=== PATIENT | female | born 1965 | race Caucasian/White ===

== ENCOUNTER → 2023-08-14 | Emergency (ER) | payer OTHER ==
[~2023-08-14] MED LIST: FOLIC ACID 5 MG/ML VIAL ONE; LORazepam 2 MG/ML VIAL ONE; MULTIVITAMINS 10 ML VIAL (INJ) IV ONE; NA CHLORIDE 0.9% 1,000 ML ONE; ONDANSETRON 4 MG/2 ML VIAL ONE; THIAMINE 200 MG/2 ML INJ ONE; chlordiazePOXIDE HCl 25 MG CAP ONE
--- OUTSIDE RECORDS SUMMARY | 2023-08-14 15:19 | XMS REPORT | Continuity of Care Document ---
Author Name Unknown Address [address] [facility] [address] [id number] [facility] thconnect Address [address] [facility]. 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 Name Role Phone VARGAS LACY Attending Clinician Unavailable IRMA FREEMAN Attending Clinician Unavailab JULIANO Malhotra Attending Clinician Unavailable ANDRIA FAUST Attending Clinician Unavaila MAME Jorgensen Attending Clinician Unavailab le [email or web address] Attending Clinician Unavaila NATALIA Gutierrez Attending Clinician Unavailable [id number] Attending Clinician Unavailable LEÓN PEREIRA Attending Clinician UnaMEGAN Mendoza Attending Clinician Unavailabl CRISTY Mai Attending Clinician Unavailable MD TYLER Attending Clinician Unavailab le [id number] Attending Clinician Unavailable GINA FELIPE Attending Clinician Unavailable [id number] Attending Clinician Unavailable Vargas Lacy MD Attending Clinician [phone] BRENDA BLACK Attending Clinician Unavailable Beba Wallis MD Attending Clinician +- [phone] BEBA WALLIS Attending Clinician Marie Bond MD Attending Clinician [phone] MARIE MARTIN Attending Clinician Unavailenedelia e Doctor Unassigned, [facility] Attending Clinician U navailable Only, Adc Test Attending Clinician Unavailable Jyoti Jiemnez Attending Clinician [phone], [facility] Attending Clinician Unavailable CYNTHIA POLLOCK Attending Clinician UnavailVARGAS Ochoa Admitting Clinician Unavailable [email or web address] Admitting Clinician UnavailVargas Rodriguez MD Admitting Clinician Payers Payer Name Policy Type Policy Number Effective Date Expirati on Date Source CIG[employer] II [id number] 2019 00:00:00 AETNA 2 [id number] 2022 00:00:00 AETNA CHOICE POS II [id number] 2020 00:00:00 Problems Condition Name Condition Details Condition Category Status Onset Date Resolution Date Last Treatment Date Treating Clinician Comments Source Vapes nicotine containing substance Vapes nicotine containing substance Disease Active 03-13 00:00: 00 Dorothy Barroso - Externa l Arthritis Arthritis Disease Active 03-13 00:00: 00 Dorothy Barroso - Externa l Family history of colon cancer Family history of colon cancer Disease Active 01-18 00:00: 00 Overview: Formattin g of this note might be different from the original. Added automatic ally from request for surgery [id number] [facility] Family history of esophageal cancer Family history of esophageal cancer Disease Active 01-18 00:00: 00 Overview: Formattin g of this note might be different from the original. Added automatic ally from request for surgery [id number] [facility] No known active problems No known active problems Disease [facility] Allergies, Adverse Reactions, Alerts Allergy Name Allergy Type Status Severity Reaction(s) Onset Date Inactive Date Treating Clinician Comments Source No Known Medicati on Allergie s Drug Active [facility] No Known Medicati on Allergie s Drug Active [facility] No Known Medicati on Allergie s Drug Active [facility] No Known Medicati on Allergie s Drug Active [facility] No Known Medicati on Allergie s Drug Active [facility] No Known Medicati on Allergie s Drug Active [facility] No Known Medicati on Allergie s Drug Active [facility] No Known Medicati on Allergie s Drug Active [facility] No Known Medicati on Allergie s Drug Active [facility] No Known Medicati on Allergie s Drug Active [facility] No Known Medicati on Allergie s Drug Active [facility] NO KNOWN ALLERGIE S Drug Class Active [facility] Social History Social Habit Start Date Stop Date Quantity Comments Source Exposure to SARS-CoV-2 (event) Not sure [facility] Gender identity Lor acharya Chio - External Sexual orientation Miki flores Chio - External Alcohol intake 2023-03-30 00:00:00 2023-03-30 00:00:00 .57 /d Dorothy Barroso - External History of Social function 2023-03-15 00:00:00 2023-03-15 00:00:00 Dorothy Barroso - External Tobacco use and exposure 2022-03-13 00:00:00 2022-03-13 00:00:00 Smokeless tobacco non-user Dorothy Barroso - External Tobacco Comment 2019-10-11 00:00:00 2019-10-11 00:00:00 Patient myranda [facility] Sex Assigned At 1965 00:00:00 1965 00:00:00 Dorothy Barroso - External Smoking Status Start Date Stop Date Source Never smoked tobacco Dorothy Barroso - External Former smoker 2020-02-07 00:00:00 2020-02-07 00:00:00 [facility] Medications Ordered Medication Name Filled Medication Name Start Date Stop Date Current Medication? Ordering Clinician Indication Dosage Frequency Signature (SIG) Comments Components Source Ipratropium [place] 0.03 % nasal Solution 2022-06 00:00: 00 Yes [id number] 2{spray } Use 2 sprays in each nostril every 12 hours. Dorothy Moy Externa l Ketorolac Tromethamin e (TORADOL) 60 mg/2 mL 2022-06 16:45: 00 03-30 16:51 :00 No [id number] 60mg Dorothy Barroso - Externa l Ketorolac Tromethamin e (TORADOL) 60 mg/2 mL 2022-06 16:45: 00 03-30 16:51 :00 No [id number] 60mg 60 mg, Physician Administer ed, ONCE, On Wed03/30/23 at 1145, For 1 dose Dorothy Chio mo Duloxetine HCl [address] Particles 2022-06 0-03 00:00: 00 Yes [id number] 20mg Take 1 capsule (20 mg total) by mouth daily. Dorothy mo Diclofenac Sodium 75 MG oral Tablet Delayed Response 03-26 00:00: 00 Yes [id number] 75mg Take 1 tablet (75 mg total) by mouth 2 times daily. Dorothy mo Diclofenac Sodium 75 MG oral Tablet Delayed Response 03-26 00:00: 00 Yes [id number] 75mg Take 1 tablet (75 mg total) by mouth 2 times daily. Dorothy mo Sertraline HCl 25 MG oral Tablet 03-09 00:00: 00 Yes [id number] 25mg Take 1 tablet (25 mg total) by mouth daily. Dorothy mo Sertraline HCl 25 MG oral Tablet 03-09 00:00: 00 Yes [id number] 25mg Take 1 tablet (25 mg total) by mouth daily. Dorothy mo Duloxetine HCl [address] Particles 02-18 00:00: 00 Yes [id number] 20mg Take 1 capsule (20 mg total) by mouth daily. Dorothy mo Sertraline HCl 25 MG oral Tablet 02-18 00:00: 00 Yes [id number] 25mg Take 1 tablet (25 mg total) by mouth daily. Dorothy mo methylPREDN ISolone 4 MG oral Tablet Therapy Pack 02-18 00:00: 00 Yes [id number] 1{esteban} Take 1 esteban by mouth See Admin Instructio ns Use as directed. Dorothy mo Duloxetine HCl [address] Particles 02-18 00:00: 00 Yes [id number] 20mg Take 1 capsule (20 mg total) by mouth daily. Dorothy mo methylPREDN ISolone 4 MG oral Tablet Therapy Pack 02-18 00:00: 00 Yes [id number] 1{esteban} Take 1 pa k by mouth See Admin Instructio ns Use as directed. Dorothy mo methylPREDN ISolone 4 MG oral Tablet Therapy Pack 02-18 00:00: 00 04-28 00:00 :00 No [id number] 1{esteban} Take 1 esteban by mouth See Admin Instructio ns Use as directed. Dorothy Moy Externa chely Sertraline HCl 25 MG oral Tablet 02-11 00:00: 00 02-18 00:00 :00 No [id number] 50mg TAKE 2 TABLETS(50 MG) BY MOUTH DAILY Dorothy Barroso - Externa chely Sertraline HCl 25 MG oral Tablet 01-04 00:00: 00 Yes [id number] 50mg Take 2 tablets (50 mg total) by mouth daily Dorothy Moy Externa chely Trazodone HCl 50 MG oral Tablet 01-04 00:00: 00 Yes [id number] 50mg Take 1 tablet (50 mg total) by mouth nightly Dorothy Barroso - Externa chely Trazodone HCl 50 MG oral Tablet 01-04 00:00: 00 Yes [id number] 50mg Take 1 tablet (50 mg total) by mouth nightly Dorothy Barroso - Externa chely Trazodone HCl 50 MG oral Tablet 01-04 00:00: 00 Yes [id number] 50mg Take 1 tablet (50 mg total) by mouth nightly Dorothy Moy Externa chely Trazodone HCl 50 MG oral Tablet 01-04 00:00: 00 Yes [id number] 50mg Take 1 tablet (50 mg total) by mouth nightly Dorothy Barroso - Externa chely Sertraline HCl 25 MG oral Tablet 710 00:00: 00 Yes [id number] 50mg Take 2 tablets (50 mg total) by mouth daily Dorothy Barroso - Externa chely Trazodone HCl 50 MG oral Tablet 10 00:00: 00 Yes [id number] 50mg Take 1 tablet (50 mg total) by mouth nightly Dorothy Barroso - Externa chely Sertraline HCl 25 MG oral Tablet 01-01 00:00: 01-04 00:00 :00 No [id number] TAKE 1 TABLET(25 MG) BY MOUTH DAILY Dorothy mo Trazodone HCl 50 MG oral Tablet 12-07 00:00: 00 Yes [id number] 50mg Take 1 tablet (50 mg total) by mouth nightly Dorothy mo Sertraline HCl 25 MG oral Tablet 12-07 00:00: 00 Yes [id number] 25mg Take 1 tablet (25 mg total) by mouth daily Dorothy mo buPROPion HCl 75 MG oral Tablet 12-07 00:00: 00 Yes [id number] 75mg Take 1 tablet (75 mg total) by mouth daily Dorothy mo Trazodone HCl 50 MG oral Tablet 12-07 00:00: 00 01-04 00:00 :00 No [id number] 50mg Take 1 tablet (50 mg total) by mouth nightly Dorothy mo buPROPion HCl 75 MG oral Tablet 12-07 00:00: 00 01-04 00:00 :00 No [id number] 75mg Take 1 tablet (75 mg total) by mouth daily Dorothy mo methylPREDN ISolone 4 MG oral Tablet Therapy Pack - 00:00: 00 12-07 00:00 :00 No [id number] 1{esteban} Take 1 esteban by mouth See Admin Instructio ns Use as directed Dorothy mo Lidocaine 4 % apply externally Ointment 03-27 00:00: 00 Yes [id number] 3D Apply 1 applicatio n topically 3 times daily as needed Dorothy mo Lidocaine 4 % apply externally Ointment 03-27 00:00: 00 07-17 00:00 :00 No [id number] 3D Apply 1 applicatio n topically 3 times daily as needed Dorothy mo water for irrigation irrigation solution 8-11 13:18: 00 Yes PRN, Starting Wed02/06/20 at 0818, Until Discontinu ed, Routine, Intra-op [facility] simethicone (GAS RELIEF (SIMETHICON E)) 40 mg/0.6 mL drops 02-05 13:17: 00 Yes PRN, Starting Wed02/06/20 at 0817, Until Discontinu ed, Routine, Intra-op [facility] pantoprazol e 40 mg EC tablet 02-05 00:00: 00 Yes [id number] 40mg Take 1 tablet by mouth daily. [facility] sucralfate (CARAFATE) 1 gram tablet 02-05 00:00: 00 Yes [id number] 1g Take 1 tablet by mouth before meals and at bedtime. [facility] pantoprazol e 40 mg EC tablet 02-05 00:00: 00 Yes [id number] 40mg Take 1 tablet by mouth daily. [facility] sucralfate (CARAFATE) 1 gram tablet 02-05 00:00: 00 Yes [id number] 1g Take 1 tablet by mouth before meals and at bedtime. [facility] pantoprazol e 40 mg EC tablet 02-05 00:00: 00 Yes [id number] 40mg Take 1 tablet by mouth daily. [facility] sucralfate (CARAFATE) 1 gram tablet 02-05 00:00: 00 Yes [id number] 1g Take 1 tablet by mouth before meals and at bedtime. [facility] pantoprazol e 40 mg EC tablet 02-05 00:00: 00 Yes [id number] 40mg Take 1 tablet by mouth daily. [facility] sucralfate (CARAFATE) 1 gram tablet 02-05 00:00: 00 Yes [id number] 1g Take 1 tablet by mouth before meals and at bedtime. [facility] pantoprazol e 40 mg EC tablet 02-05 00:00: 00 Yes [id number] 40mg Take 1 tablet by mouth daily. [facility] sucralfate (CARAFATE) 1 gram tablet 02-05 00:00: 00 Yes [id number] 1g Take 1 tablet by mouth before meals and at bedtime. [facility] pantoprazol e 40 mg EC tablet 02-05 00:00: 00 Yes [id number] 40mg Take 1 tablet by mouth daily. [facility] sucralfate (CARAFATE) 1 gram tablet 02-05 00:00: 00 Yes [id number] 1g Take 1 tablet by mouth before meals and at bedtime. [facility] pantoprazol e 40 mg EC tablet 02-05 00:00: 00 Yes [id number] 40mg Take 1 tablet by mouth daily. [facility] sucralfate (CARAFATE) 1 gram tablet 02-05 00:00: 00 Yes [id number] 1g Take 1 tablet by mouth before meals and at bedtime. [facility] pantoprazol e 40 mg EC tablet 02-05 00:00: 00 05-27 00:00 :00 No [id number] 40mg Take 1 tablet by mouth daily. [facility] sucralfate (CARAFATE) 1 gram tablet 02-05 00:00: 00 05-27 00:00 :00 No [id number] 1g Take 1 tablet by mouth before meals and at bedtime. [facility] pantoprazol e 40 mg EC tablet 02-05 00:00: 00 05-27 00:00 :00 No [id number] 40mg Take 1 tablet by mouth daily. [facility] sucralfate (CARAFATE) 1 gram tablet 02-05 00:00: 00 05-27 00:00 :00 No [id number] 1g Take 1 tablet by mouth before meals and at bedtime. [facility] peg-electro lyte soln 236-22.74-6 .74 -5.86 gram solution 0 724 00:00: 00 Yes [id number] 4000mL Take 4,000 mL by mouth SEE-INSTRU CTIONS. Take as directed [facility] peg-electro lyte soln 236-22.74-6 .74 -5.86 gram solution 2019-0 724 00:00: 00 Yes [id number] 4000mL Take 4,000 mL by mouth SEE-INSTRU CTIONS. Take as directed [facility] peg-electro lyte soln 236-22.74-6 .74 -5.86 gram solution 0 24 00:00: 00 Yes [id number] 4000mL Take 4,000 mL by mouth SEE-INSTRU CTIONS. Take as directed [facility] peg-electro lyte soln 236-22.74-6 .74 -5.86 gram solution 0 24 00:00: 00 02-05 00:00 :00 No [id number] 4000mL Take 4,000 mL by mouth SEE-INSTRU CTIONS. Take as directed [facility] methylPREDN ISolone (MEDROL, ESTEBAN,) 4 mg tablets 0 616 00:00: 00 Yes [id number] Take by mouth SEE-INSTRU CTIONS. follow package directions [facility] methylPREDN ISolone (MEDROL, ESTEBAN,) 4 mg tablets 0 616 00:00: 00 12-24 00:00 :00 No [id number] Take by mouth SEE-INSTRU CTIONS. follow package directions [facility] methylPREDN ISolone (MEDROL, ESTEBAN,) 4 mg tablets 0 6-16 00:00: 00 12-24 00:00 :00 No [id number] Take by mouth SEE-INSTRU CTIONS. follow package directions [facility] meloxicam 15 mg tablet 0 4-24 00:00: 00 Yes [id number] 15mg Take 1 tablet by mouth daily. [facility] meloxicam 15 mg tablet 2019-0 4-24 00:00: 00 Yes [id number] 15mg Take 1 tablet by mouth daily. [facility] meloxicam 15 mg tablet 2020-0 4-24 00:00: 00 Yes [id number] 15mg Take 1 tablet by mouth daily. [facility] 2020-0 4-24 00:00: 00 Yes [id number] 15mg Take 1 tablet by mouth daily. [facility] mg tablet 2020-0 4-24 00:00: 00 Yes [id number] 15mg Take 1 tablet by mouth daily. [facility] mg tablet 2020-0 4-24 00:00: 00 Yes [id number] 15mg Take 1 tablet by mouth daily. [facility] mg tablet 2020-0 4-24 00:00: 00 Yes [id number] 15mg Take 1 tablet by mouth daily. [facility] meloxicam 15 mg tablet 2020-0 424 00:00: 00 Yes [id number] 15mg Take 1 tablet by mouth daily. [facility] meloxicam 15 mg tablet 2020-0 4-24 00:00: 00 Yes [id number] 15mg Take 1 tablet by mouth daily. [facility] meloxicam 15 mg tablet 2020-0 4-24 00:00: 00 Yes [id number] 15mg Take 1 tablet by mouth daily. [facility] meloxicam 15 mg tablet 2020-0 424 00:00: 00 Yes [id number] 15mg Take 1 tablet by mouth daily. [facility] meloxicam 15 mg tablet 2020-0 4-24 00:00: 00 Yes [id number] 15mg Take 1 tablet by mouth daily. [facility] meloxicam 15 mg tablet 2020-0 4-24 00:00: 00 Yes [id number] 15mg Take 1 tablet by mouth daily. [facility] meloxicam 15 mg tablet 2020-0 4-24 00:00: 00 Yes [id number] 15mg Take 1 tablet by mouth daily. [facility] mg tablet 2020-0 4-24 00:00: 00 Yes [id number] 15mg Take 1 tablet by mouth daily. [facility] meloxicam 15 mg tablet 2020-0 4-24 00:00: 00 Yes [id number] 15mg Take 1 tablet by mouth daily. [facility] meloxicam 15 mg tablet 2020-0 4-24 00:00: 00 Yes [id number] 15mg Take 1 tablet by mouth daily. [facility] meloxicam 15 mg tablet 2020-0 4-24 00:00: 00 Yes [id number] 15mg Take 1 tablet by mouth daily. [facility] meloxicam 15 mg tablet 2020-0 4-24 00:00: 00 Yes [id number] 15mg Take 1 tablet by mouth daily. [facility] meloxicam 15 mg tablet 2020-0 4-24 00:00: 00 Yes [id number] 15mg Take 1 tablet by mouth daily. [facility] meloxicam 15 mg tablet 2020-0 4-24 00:00: 00 Yes [id number] 15mg Take 1 tablet by mouth daily. [facility] meloxicam 15 mg tablet 2020-0 4-24 00:00: 00 30 00:00 :00 No [id number] 15mg Take 1 tablet by mouth daily. [facility] meloxicam 15 mg tablet 2020-0 4-24 00:00: 00 30 00:00 :00 No [id number] 15mg Take 1 tablet by mouth daily. [facility] methylPREDN ISolone (MEDROL, ESTEBAN,) 4 mg tablets 2020-0 4-15 00:00: 00 Yes [id number] Take by mouth SEE-INSTRU CTIONS. follow package directions [facility] methylPREDN ISolone (MEDROL, ESTEBAN,) 4 mg tablets 2020-0 4-15 00:00: 00 Yes [id number] Take by mouth SEE-INSTRU CTIONS. follow package directions [facility] methylPREDN ISolone (MEDROL, ESTEBAN,) 4 mg tablets 2020-0 4-15 00:00: 00 16 00:00 :00 No [id number] Take by mouth SEE-INSTRU CTIONS. follow package directions [facility] No known medications No Un j carlos [facility] Immunizations Ordered Immunization Name Filled Immunization Name Date Status Comments Source Influenza, Injectable, Mdck, Preservative Free, Quadrivalt 2022-06-09 00:00:00 Completed Dorothy Wolfold - External influenza, Injectable, Mdck, Preservative Free, Quadrivalt 2022-06-09 00:00:00 Completed Dorothy Wolfold - External Influenza, Injectable, Mdck, Preservative Free, Quadrivalt 2022-06-09 00:00:00 Completed Dorothy Wolfold - External Influenza, Injectable, Mdck, Preservative Free, Quadrivalt 2022-06-09 00:00:00 Completed Dorothy Wolfold - External Tdap- (Boostrix, Adacel) 2022-03-13 00:00:00 Completed Dorothy Peckybold - External Tdap- (Boostrix, Adacel) 2022-03-13 00:00:00 Completed Dorothy Peckybold - External Tdap- (Boostrix, Adacel) 2022-03-13 00:00:00 Completed Dorothy Wolfold - External Tdap- (Boostrix, Adacel) 2022-03-13 00:00:00 Completed Dorothy Wolfold - External Tdap- (Boostrix, Adacel) 2022-03-13 00:00:00 Completed Dorothy Peckybold - External Tdap- (Boostrix, Adacel) 2022-03-13 00:00:00 Completed Dorothy Barroso - External SARS-COV-2 COVID-19 MODERNA VACCINE 2020-10-02 00:00:00 Completed [facility] SARS-COV-2 COVID-19 MODERNA VACCINE 2020-09-04 00:00:00 Completed [facility] Tdap- (Boostrix, Adacel) Unknown Completed Dorothy Wolfold - External Influenza, Injectable, Mdck, Preservative Free, Quadrivalent Unknown Completed Dorothy Wolfold - External Tdap- (Boostrix, Adacel) Unknown Completed Dorothy Wolfold - External Influenza, Injectable, Mdck, Preservative Free, Quadrivalent Unknown Completed Dorothy Barroso - External Vital Signs Vital Name Observation Time Observation Value Comments S ource Height/Length Measured 2020-02-20 14:20:07 Body weight 2023-03-30 16:17:00 64.955 kg Lor Wolfold - External BMI 2023-03-30 16:17:00 23.11 kg/m2 Lor ey Seybold - External Systolic blood pressure 2023-02-18 14:21:00 134 mm[Hg] Dorothy Seybo ld - External Diastolic blood pressure 2023-02-18 14:21:00 90 mm[Hg] Dorothy Seybo ld - External Heart rate 2023-02-18 14:21:00 74 /min Spencerse y Seybold - External Body temperature 2023-02-18 14:21:00 36.06 Saundra Dorothy Seybold - External Respiratory rate 2023-02-18 14:21:00 14 /min Dorothy Seybold - External Body height 2023-02-18 14:21:00 167.6 cm Lor ey Seybold - External Body weight 2023-02-18 14:21:00 64.411 kg Lor ey Seybold - External BMI 2023-02-18 14:21:00 22.92 kg/m2 Lor ey Seybold - External Body temperature 2023-01-04 20:10:00 36.67 Saundra Dorothy Seybold - External Respiratory rate 2023-01-04 20:10:00 14 /min Dorothy Peckybold - External Body height 2023-01-04 20:10:00 167.6 cm Lor acharya Seybold - External Body weight 2023-01-04 20:10:00 66.225 kg Lor ey Seybold - External BMI 2023-01-04 20:10:00 23.57 kg/m2 Lor acharya Seybold - External Oxygen saturation in Arterial blood by Pulse oximetry 2023-01-04 20:10:00 99 /min Dorothy Seybo ld - External Systolic blood pressure 2023-01-04 20:10:00 112 mm[Hg] Dorothy Peckybo ld - External Diastolic blood pressure 2023-01-04 20:10:00 67 mm[Hg] Dorothy Seybo ld - External Heart rate 2023-01-04 20:10:00 88 /min Spencerse y Seybold - External Systolic blood pressure 2022-12-07 19:11:00 122 mm[Hg] Dorothy Seybo ld - External Diastolic blood pressure 2022-12-07 19:11:00 74 mm[Hg] Dorothy Seybo ld - External Heart rate 2022-12-07 19:11:00 68 /min Kelse y Seybold - External Body temperature 2022-12-07 19:11:00 36 Saundra Dorothy Seybold - External Respiratory rate 2022-12-07 19:11:00 14 /min Dorothy Seybold - External Body height 2022-12-07 19:11:00 167.6 cm Lor ey Seybold - External Body weight 2022-12-07 19:11:00 66.225 kg Lor ey Seybold - External BMI 2022-12-07 19:11:00 23.57 kg/m2 Lor ey Seybold - External Systolic blood pressure 2022-07-17 20:40:00 132 mm[Hg] Dorothy Seybo ld - External Diastolic blood pressure 2022-07-17 20:40:00 82 mm[Hg] Dorothy Seybo ld - External Heart rate 2022-07-17 20:40:00 64 /min Kelse y Seybold - External Respiratory rate 2022-07-17 20:40:00 18 /min Dorothy Seybold - External Systolic blood pressure 2022-04-21 16:14:00 124 mm[Hg] Dorothy Seybo ld - External Diastolic blood pressure 2022-04-21 16:14:00 86 mm[Hg] Dorothy Seybo ld - External Heart rate 2022-04-21 16:14:00 80 /min Kelse y Seybold - External Respiratory rate 2022-04-21 16:14:00 18 /min Dorothy Seybold - External Body height 2022-04-21 16:14:00 167.6 cm Lor ey Seybold - External Body weight 2022-04-21 16:14:00 74.934 kg Lor ey Seybold - External BMI 2022-04-21 16:14:00 26.66 kg/m2 Lor ey Seybold - External Systolic blood pressure 2020-05-27 19:52:00 143 mm[Hg] [facility] Diastolic blood pressure 2020-05-27 19:52:00 91 mm[Hg] [facility] Heart rate 2020-05-27 19:52:00 66 /min [facility] Body height 2020-05-27 19:52:[address] [facility] Body weight 2020-05-27 19:52:[address] [facility] BMI 2020-05-27 19:52:00 24.86 kg/m2 [facility] Systolic blood pressure 2020-02-15 19:13:00 136 mm[Hg] [facility] Diastolic blood pressure 2020-02-15 19:13:00 87 mm[Hg] [facility] Heart rate 2020-02-15 19:13:00 68 [facility] 2020-02-15 19:13:[address] [facility] Body weight 2020-02-15 19:13:[address] [facility] BMI 2020-02-15 19:13:00 25.02 kg/m2 [facility] Height/Length Measured 2021-07-15 12:10:36 167.64 cm Weight Dosing 2021-07-15 12:10:36 68.12 kg Height/Length Measured 2021-07-15 12:10:32 167.64 cm Weight Dosing 2021-07-15 12:10:32 68.12 kg Height/Length Measured 2021-07-15 12:10:31 167.64 cm Weight Dosing 2021-07-15 12:10:31 68.12 kg Height/Length Measured 2021-07-15 12:09:18 167.64 cm Weight Dosing 2021-07-15 12:09:18 68.12 kg Height/Length Measured 2021-07-15 12:09:15 167.64 cm Weight Dosing 2021-07-15 12:09:15 68.12 kg Height/Length Measured 2021-07-15 12:08:59 167.64 cm Weight Dosing 2021-07-15 12:08:59 68.12 kg Height/Length Measured 2021-07-15 12:08:41 167.64 cm Weight Dosing 2021-07-15 12:08:41 70.30 kg Height/Length Measured 2021-07-15 12:08:23 167.64 cm Weight Dosing 2021-07-15 12:08:23 70.30 kg Height/Length Measured 2021-07-15 12:08:22 167.64 cm Weight Dosing 2021-07-15 12:08:22 70.30 kg Height/Length Measured 2021-07-15 12:07:47 167.64 cm Weight Dosing 2021-07-15 12:07:47 70.30 kg Height/Length Measured 2021-07-15 12:07:45 167.64 cm Weight Dosing 2021-07-15 12:07:45 70.30 kg Height/Length Measured 2020-02-27 10:41:27 Weight Dosing 2020-02-27 10:41:27 Height/Length Measured 2020-02-27 10:13:37 Systolic blood pressure 2020-02-20 20:58:00 130 mm[Hg] [facility] Diastolic blood pressure 2020-02-20 20:58:00 87 mm[Hg] [facility] Heart rate 2020-02-20 20:58:00 69 /min Unive [facility] Body temperature 2020-02-20 20:58:00 36.61 Saundra [facility] Respiratory rate 2020-02-20 20:58:00 18 /min [facility] Body weight 2020-02-20 20:58:[address] [facility] BMI 2020-02-20 20:58:00 25.11 kg/m2 [facility] [facility] Systolic blood pressure 2020-02-06 13:50:00 110 mm[Hg] [facility] Diastolic blood pressure 2020-02-06 13:50:00 60 mm[Hg] [facility] Heart rate 2020-02-06 13:50:00 59 /min [facility] Oxygen saturation in Arterial blood by Pulse oximetry 2020-02-06 13:50:00 99 /min [facility] Respiratory rate 2020-02-06 13:30:00 16 /min [facility] Body temperature 2020-02-06 13:26:00 35.83 Saundra [facility] Body height 2020-02-05 14:45:[address] [facility] Body weight 2020-02-05 14:45:[address] [facility] BMI 2020-02-05 14:45:00 24.21 kg/m2 [facility] Systolic blood pressure 2020-01-18 18:03:00 139 mm[Hg] [facility] Diastolic blood pressure 2020-01-18 18:03:00 91 mm[Hg] [facility] Heart rate 2020-01-18 18:03:00 63 /min [facility] Body temperature 2020-01-18 18:03:00 36.39 Saundra [facility] Respiratory rate 2020-01-18 18:03:00 18 /min [facility] Body weight 2020-01-18 18:03:00 69.627 kg [facility] BMI 2020-01-18 18:03:00 24.78 kg/m2 [facility] Systolic blood pressure 2019-12-29 13:08:00 139 mm[Hg] [facility] Diastolic blood pressure 2019-12-29 13:08:00 93 mm[Hg] [facility] Heart rate 2019-12-29 13:06:00 78 /[facility] 2019-12-29 13:06:[address] [facility] BMI 2019-12-29 13:06:00 25.18 kg/m2 [facility] Heart rate 2019-12-25 14:10:00 58 /min [facility] Body height 2019-12-25 14:10:[address] [facility] Body weight 2019-12-25 14:10:[address] [facility] BMI 2019-12-25 14:10:00 25.18 kg/m2 [facility] Systolic blood pressure 2019-12-25 14:10:00 145 mm[Hg] [facility] Diastolic blood pressure 2019-12-25 14:10:00 84 mm[Hg] [facility] Procedures Procedure Date / Time Performed Performing Clinician Source EXTERNAL PROVIDER RECORDS 2020-02-15 05:01:00 Doctor Unassigned, [facility] COLONOSCOPY (ENDO) 2020-02-06 12:09:58 Beba Wallis [facility] EGD (ENDO) 2020-02-06 12:06:12 Beba Wallis [facility] ASSIGNMENT OF BENEFITS 2020-02-05 13:49:14 Docto r Unassigned, [facility] DISCLOSURE AND CONSENT, MEDICAL AND SURGICAL PROCEDURES 2020-01-18 05:01:00 Doctor Unassigned, [facility] XR KNEE <3 VW RIGHT 2019-12-29 13:28:08 Maury Martin [facility] Encounters Start Date/Time End Date/Time Encounter Type Admission Type Attending [facility] Care Department Encounter ID Source 2021-07-15 12:02:43 Inpatient 3 [facility] [id number] [facility] 2021-04-25 09:55:42 Outpatient R VARGAS LACY [facility] [id number] [facility] 2023-09-03 08:15:00 2023-09-03 08:15:00 Outpatient IRMA IBANEZ [id number] [facility] 2023-08-06 00:00:00 2023-08-06 00:00:00 Outpatient JULIANO LORD [id number] [facility] 2023-06-30 09:30:00 2023-06-30 09:30:00 Outpatient ANDRIA FAUST [id number] [facility] 2023-06-07 00:00:00 2023-06-07 00:00:00 Outpatient JULIANO LORD [id number] [facility] 2023-05-04 00:00:00 2023-05-04 00:00:00 Outpatient JULIANO LORD [id number] [facility] 2023-04-28 08:45:00 2023-04-28 08:45:00 Outpatient MMAE FONTANA [id number] [facility] 2023-04-28 00:00:00 2023-04-28 00:00:00 Outpatient JULIANO LORD [id number] [facility] 2023-04-24 00:00:00 2023-04-24 00:00:00 Outpatient GC_GCBZW_Ka diyala_S PRIV PRIV [id number] [facility] 2023-04-24 00:00:00 2023-04-24 00:00:00 Outpatient GC_GCBZW_Ka diyala_S PRIV PRIV [id number] [facility] 2023-03-30 11:00:00 2023-03-30 11:00:00 Outpatient NATALIA GAMEZ DOROTHY MARTINEZ [id number] [facility] 2023-03-30 11:00:00 2023-03-30 11:00:00 Outpatient ANDRIA FAUST DOROTHY MARTINEZ [id number] [facility] 2023-03-29 00:00:00 2023-03-29 00:00:00 Outpatient HUNDL, JULIANO MARTINEZ [id number] [facility] 2023-03-26 00:00:00 2023-03-26 00:00:00 Outpatient HUNDL, JULIANO MARTINEZ [id number] [facility] 2023-03-24 10:30:00 2023-03-24 10:30:00 Outpatient HUNDL, JULIANO MARTINEZ [id number] [facility] 2023-03-23 15:30:00 2023-03-23 15:30:00 Outpatient DOROTHY MARTINEZ [id number] [facility] 2023-03-22 09:30:00 2023-03-22 09:30:00 Outpatient HUNDL, JULIANO MARTINEZ [id number] [facility] 2023-03-09 00:00:00 2023-03-09 00:00:00 Outpatient HUNDL, JULIANO MARTINEZ [id number] [facility] 2023-03-04 00:00:00 2023-03-04 00:00:00 Outpatient LUCRECIAL, JULIANO MARTINEZ [id number] [facility] 2023-02-18 10:15:00 2023-02-18 10:15:00 Outpatient LAB90 DOROTHY MARTINEZ [id number] [facility] 2023-02-18 09:30:00 2023-02-18 09:30:00 Outpatient HUNDL, JULIANO MARTINEZ [id number] [facility] 2023-02-07 00:00:00 2023-02-07 00:00:00 Outpatient HUNDL, JULIANO DOROTHY MARTINEZ [id number] [facility] 2023-02-07 00:00:00 2023-02-07 00:00:00 Outpatient HUNDL, JULIANOMarianna MARTINEZ [id number] [facility] 2023-01-29 13:00:00 2023-01-29 13:00:00 Outpatient HUNDL, JULIANO DOROTHY MARTINEZ [id number] [facility] 2023-01-05 15:30:00 2023-01-05 15:30:00 Outpatient IRMA IBANEZ [id number] [facility] 2023-01-04 15:30:00 2023-01-04 15:30:00 Outpatient HUNDL, JULIANO MARTINEZ [id number] [facility] 2022-12-31 00:00:00 2022-12-31 00:00:00 Outpatient HUNDL, JULIANO DOROTHY MARTINEZ [id number] [facility] 2022-12-07 14:30:00 2022-12-07 14:30:00 Outpatient HUNDL, JULIANO DOROTHY MARTINEZ [id number] [facility] 2022-12-01 14:30:00 2022-12-01 14:30:00 Outpatient HUNDL, JULIANO MARTINEZ [id number] [facility] 2022-11-02 00:00:00 2022-11-02 00:00:00 Outpatient HUNDL, JULIANO MARTINEZ [id number] [facility] 2022-10-07 00:00:00 2022-10-07 00:00:00 Outpatient IRMA IBANEZ [id number] [facility] 2022-09-23 11:00:00 2022-09-23 11:00:00 Outpatient DOROTHY MARTINEZ [id number] [facility] Se[facility]ryan 2022-09-23 10:00:00 2022-09-23 10:00:00 Outpatient DOROTHY MARTINEZ [id number] [facility] 2022-09-23 09:30:00 2022-09-23 09:30:00 Outpatient DOROTHY MARTINEZ [id number] [facility] Chio 2022-09-23 08:30:00 2022-09-23 08:30:00 Outpatient DOROTHYMILI MARTINEZ [id number] [facility] 2022-09-23 00:00:00 2022-09-23 00:00:00 Outpatient LEÓN PEREIRA DOROTHY MARTINEZ [id number] [facility] 2022-09-22 00:00:00 2022-09-22 00:00:00 Outpatient CHITSATAWANNAADE IRMA Mayo DOROTHY MARTINEZ [id number] [facility] 2022-09-17 08:00:00 2022-09-17 08:00:00 Outpatient CHITSAZZADE H, IRMA DOROTHY MARTINEZ [id number] [facility] 2022-09-14 00:00:00 2022-09-14 00:00:00 Outpatient RISA JULIANO MARTINEZ [id number] [facility] 2022-08-18 10:40:00 2022-08-18 10:40:00 Outpatient DOROTHY MARTINEZ [id number] [facility] laura 2022-08-10 00:00:00 2022-08-10 00:00:00 Outpatient LEÓN PEREIRA DOROTHY MARTINEZ [id number] [facility] yblaura 2022-07-31 00:00:00 2022-07-31 00:00:00 Outpatient JULIANO LORD [id number] [facility] 2022-07-31 00:00:00 2022-07-31 00:00:00 Outpatient RISA JULIANO MARTINEZ [id number] [facility] 2022-07-29 14:20:00 2022-07-29 14:20:00 Outpatient DOROTHY MARTINEZ [id number] [facility] 2022-07-29 14:10:00 2022-07-29 14:10:00 Outpatient KELLI LEÓN DOROTHY MARTINEZ [id number] [facility] 2022-07-27 00:00:00 2022-07-27 00:00:00 Outpatient KELLI, LEÓN DOROTHY MARTINEZ [id number] [facility] 2022-07-20 00:00:00 2022-07-20 00:00:00 Outpatient JOHN HARMONELLE DOROTHY MARTINEZ [id number] [facility] 2022-07-17 14:20:00 2022-07-17 14:20:00 Outpatient CRISTY BEE [id number] [facility] 2022-06-24 09:10:00 2022-06-24 09:10:00 Outpatient LEÓN PEREIRA DOROTHY MARTINEZ [id number] [facility] 2022-06-18 00:00:00 2022-06-18 00:00:00 Outpatient MD DOROTHY FLORES [id number] [facility] 2022-05-29 11:20:00 2022-05-29 11:20:00 Outpatient CRISTY BEE [id number] [facility] 2022-05-29 00:00:00 2022-05-29 00:00:00 [facility] [id number] [facility]-11 13:55:00 2022-05-11 13:55:00 Outpatient LEÓN PEREIRA [id number] [facility] 2022-05-05 00:00:00 2022-05-05 00:00:00 Outpatient MD DOROTHY FLORES [id number] [facility] 2022-04-21 11:45:00 2022-04-21 11:45:00 Outpatient [id number] DOROTHY MARTINEZ [id number] [facility] 2022-04-21 11:30:00 2022-04-21 11:30:00 Outpatient GINA FELIPE [id number] [facility] 2022-03-26 00:00:00 2022-03-26 00:00:00 Outpatient JULIANO LORD [id number] [facility] 2022-03-16 08:30:00 2022-03-16 08:30:00 Outpatient [id number] DOROTHY MARTINEZ [id number] [facility] 2022-03-16 08:00:00 2022-03-16 08:00:00 Outpatient IRMA IBANEZ [id number] [facility] 2022-03-13 10:00:00 2022-03-13 10:00:00 Outpatient LAB90 DOROTHY MARTINEZ [id number] [facility] 2022-03-13 09:00:00 2022-03-13 09:00:00 Outpatient JULIANO LORD DOROTHY [id number] [facility] 2022-03-09 10:30:00 2022-03-09 10:30:00 Outpatient JULIANO LORD DOROTHY [id number] [facility] 2021-01-27 00:00:00 2021-01-27 00:00:00 Vargas Alcaraz [facility] 1.2.840.114 350.1.13.10 4.2.7.2.686 [id number] [facility] 2020-10-02 10:40:00 2020-10-02 10:40:00 Outpatient BRENDA JONES [facility] [id number] [facility] 2020-09-04 08:20:00 2020-09-04 08:20:00 Outpatient [facility] [id number] [facility] 2020-05-27 13:45:34 2020-05-27 14:00:34 Office Visit Beba Wallis [facility] Office [address] 1.2.840.114 350.1.13.10 4.2.7.2.686 [id number] [facility] 2020-05-27 13:45:00 2020-05-27 13:45:00 Outpatient BEBA MATTHEWS [facility] [id number] [facility] 2020-02-15 14:07:23 2020-03-06 10:59:16 Office Visit Marie Martin [facility] roslyn Tate 1.840.114 350.1.13.10 4.2.7.2.686 [id number] [facility] 2020-02-27 10:03:00 2020-02-27 15:10:00 Outpatient 3 [facility] [id number] [facility] 2020-02-27 10:03:00 2020-02-27 10:03:00 Outpatient 3 [facility] [id number] [facility] 2020-02-20 13:14:00 2020-02-20 23:59:00 Outpatient 3 [facility] [id number] [facility] 2020-02-20 15:43:28 2020-02-20 16:28:04 Office Visit Vargas [facility] 1.84.114 350.1.13.10 4.2.7.2.686 [id number] [facility] 2020-02-20 16:15:00 2020-02-20 16:15:00 Outpatient R VARGAS LACY [facility] [id number] [facility] 2020-02-15 14:15:00 2020-02-15 14:15:00 Outpatient R MARTINMARIE [facility] [id number] [facility] 2020-02-15 00:00:00 2020-02-15 00:00:00 Orders Only Doctor Unassigned, [facility] 1..114 350.1.13.10 4.2.7.2.686 [id number] [facility] 2020-02-06 06:14:00 2020-02-06 09:07:00 Hospital Encounter Vargas Lacy [facility] 1..114 350.1.13.10 4.2.7.2.686 [id number] [facility] 2020-02-05 12:00:00 2020-02-05 12:00:00 Outpatient R VARGAS LACY [facility] [id number] [facility] 2020-02-05 08:51:20 2020-02-05 09:06:20 Laboratory Only Only, Adc Test Vargas Lacy [facility] 1.2.840.114 350.1.13.10 4.2.7.2.686 [id number] [facility] 2020-02-05 00:00:00 2020-02-05 00:00:00 Orders Only Doctor Unassigned, [facility] 1.20.114 350.1.13.10 4.2.7.2.686 [id number] [facility] 2020-01-19 00:00:00 2020-01-19 00:00:00 Prep For Surgery Jyoti Leos [facility] 1.284.114 350.1.13.10 4.2.7.2.686 [id number] [facility] 2020-01-18 12:56:09 2020-01-18 15:43:47 Office Visit Vargas Lacy [facility] 1.2.114 350.1.13.10 4.2.7.2.686 [id number] [facility] 2020-01-18 13:00:00 2020-01-18 13:00:00 Outpatient R VARGAS LACY [facility] [id number] [facility] 2020-01-16 14:30:00 2020-01-16 14:30:00 Outpatient R VARGAS LACY [facility] [id number] [facility] 2020-01-02 00:00:00 2020-01-02 00:00:00 Telephone Marie Martin [facility] 1.2.114 350.1.13.10 4.2.7.2.686 [id number] [facility] 2019-12-29 08:28:00 2019-12-29 23:59:00 Hospital Encounter Marie Martin [facility] 1.2.840.114 350.1.13.10 4.2.7.2.686 [id number] [facility] 2019-12-29 07:58:08 2019-12-29 08:44:52 Office Visit Marie Martin [facility] 1.2.840.114 350.1.13.10 4.2.7.2.686 [id number] [facility] 2019-12-29 08:00:00 2019-12-29 08:00:00 Outpatient R MARIE MARTIN [facility] [id number] [facility] 2019-12-25 09:34:06 2019-12-25 09:49:06 Petal Cutter Visit 2, Adc Lab Beba Wallis [facility] Building 1.2.840.114 350.1.13.10 4.2.7.2.686 [id number] [facility] 2019-12-25 09:03:18 2019-12-25 09:18:18 Office Visit Beba Wallis [facility] nal Building 1.2.840.114 350.1.13.10 4.2.7.2.686 [id number] [facility] 2019-12-25 09:15:00 2019-12-25 09:15:00 Outpatient BEBA MATTHEWS [facility] [id number] [facility] 2019-12-19 13:15:00 2019-12-19 13:15:00 Outpatient BEBA MATTHEWS [facility] [id number] [facility] 2019-12-11 00:00:00 2019-12-11 00:00:00 Telephone Beba Wallis [facility] Office Building [facility] 1.2.840.114 350.1.13.10 4.2.7.2.686 [id number] [facility] 2019-10-20 11:15:00 2019-10-20 11:15:00 Outpatient R BEBA WALLIS [facility] [id number] [facility] 2019-10-20 07:55:01 2019-10-20 08:10:01 Telemedici ne Visit Beba Wallis [facility] Building 1.2.840.114 350.1.13.10 4.2.7.2.686 [id number] [facility] 2019-10-11 14:30:00 2019-10-11 14:30:00 Outpatient R BEBA WALLIS [facility] [id number] [facility] 2019-10-11 10:06:47 2019-10-11 10:36:47 Telemedici ne Visit Beba Wallis [facility] Building 1.2.840.114 350.1.13.10 4.2.7.2.686 [id number] [facility] 2014-10-15 09:00:00 2014-10-15 10:23:24 Outpatient CYNTHIA STEARNS [facility] [id number] [facility] Results Test Description Test Time Test Comments Results Resul t Comments Source [facility] Mammo Digital Screening Bilateral 2020-02-20 15:14:33 Patient: KENIA RICK Date/Time02/20/2020 13:55 CDTReason for ExamZ12.31ReportExaminat ion: Bilateral mammogramLocation code: X01Wxregdojaw: NoneDiscussion:The current examination includes digital 2-D and 3-D routine and implant displaced CC and MLO views. Computer aided detection was utilized for this evaluation. There are scattered fibroglandular elements present within either breast which could obscure a lesion on mammography. There are no suspicious masses or suspicious microcalcifications identified.Impression:AC R 2 Benign MammogramYearly screening mammography is recommended.A. A negative x-ray report should not delay biopsy if a dominant or clinically suspicious mass is present. 4-8% of cancers are not identified by x-ray.B. A negative report may reinforce clinical impression.C. Adenosis and dense breasts may obscure an underlying neoplasm.D. False positive reports average 6-10%.Category 0 = Needs Additional Imaging Evaluation.Category 1 = Negative.Category 2 = Benign Finding.Category 3 = Probably Benign Finding-Short Interval Follow-Up Suggested.Category 4 = Suspicious Abnormality.Category 5 = Highly Suggestive of Malignancy.Category 6 = Known Malignancy. Final Dictated by: MD Saab James EDictated DT/TM: 02/20/2020 3:06 pmSigned by: MD Saab James ESigned (Electronic Signature): 02/20/2020 3:14 pm Basic Metabolic [id number] 15:01:22* Test Item Value Reference Range Interpretation Comme nts Sodium Level (test code = Sodium Level) 138.0 mmol/L 136.0-145.0 Potassium Level (test code = Potassium Level) 4.00 mmol/L 3.50-5.10 Chloride Level (test code = Chloride Level) 103.0 mmol/L 98.0-107.0 CO2 (test code = CO2) 30 mmol/L 20-31 Anion Gap (test code = Anion Gap) 4.8 mmol/L 5.0-15.0 L BUN (test code = BUN) 14 mg/dL 9-23 Creatinine Level (test code = Creatinine Level) 0.74 mg/dL 0.55-1.02 BUN/Creat Ratio (test code = BUN/Creat Ratio) 18.9 ratio 10.0-20.0 Glucose Level (test code = Glucose Level) 95 mg/dL 74-106 Calcium Level (test code = Calcium Level) 9.3 mg/dL 8.3-10.6 eGFR AA (test code = eGFR AA) >60 mL/min/1.73 m2 >=60 eGFR (estimated Glomerular Filtration Rate) is an estimated value, calculated from the patient's serum creatinine using the MDRD equation. It is NOT the patient's actual GFR. The eGFR provides a more clinically useful measure of kidney disease than serum creatinine alone.This calculation takes sex and race into account, if the information is provided. If the race is not provided, and the patient is -[place], multiply by 1.212. If sex is not provided, and the patient is female, multiply by 0.742. Results for patients <18 years of age have not been validated by the MDRD study and should be interpreted with caution. eGFR Result Interpretation:eGFR > or = 60 is in the Normal RangeeGFR < 60 may mean kidney diseaseeGFR < 15 may mean kidney failure Ranges recommended by the National Kidney Foundation, http://nkdep.nih.gov Hemolysis (test code = Hemolysis) 0 mg/dL 8-11 Icterus (test code = Icterus) 0 mg/dL 8-11 Lipemia (test code = Lipemia) 0 mg/dL 8-11 Basic Metabolic [id number] 15:01:22* Test Item Value Reference Range Interpretation Comme nts Sodium Level (test code = Sodium Level) 138.0 mmol/L 136.0-145.0 Potassium Level (test code = Potassium Level) 4.00 mmol/L 3.50-5.10 Chloride Level (test code = Chloride Level) 103.0 mmol/L 98.0-107.0 CO2 (test code = CO2) 30 mmol/L 20-31 Anion Gap (test code = Anion Gap) 4.8 mmol/L 5.0-15.0 L BUN (test code = BUN) 14 mg/dL 9-23 Creatinine Level (test code = Creatinine Level) 0.74 mg/dL 0.55-1.02 BUN/Creat Ratio (test code = BUN/Creat Ratio) 18.9 ratio 10.0-20.0 Glucose Level (test code = Glucose Level) 95 mg/dL 74-106 Calcium Level (test code = Calcium Level) 9.3 mg/dL 8.3-10.6 eGFR AA (test code = eGFR AA) >60 mL/min/1.73 m2 >=60 eGFR (estimated Glomerular Filtration Rate) is an estimated value, calculated from the patient's serum creatinine using the MDRD equation. It is NOT the patient's actual GFR. The eGFR provides a more clinically useful measure of kidney disease than serum creatinine alone.This calculation takes sex and race into account, if the information is provided. If the race is not provided, and the patient is -[place], multiply by 1.212. If sex is not provided, and the patient is female, multiply by 0.742. Results for patients <18 years of age have not been validated by the MDRD study and should be interpreted with caution. eGFR Result Interpretation:eGFR > or = 60 is in the Normal RangeeGFR < 60 may mean kidney diseaseeGFR < 15 may mean kidney failure Ranges recommended by the National Kidney Foundation, http://nkdep.nih.gov eGFR Non-AA (test code = eGFR Non-AA) >60.00 mL/min/1.73 m2 >=60.00 eGFR (estimated Glomerular Filtration Rate) is an estimated value, calculated from the patient's serum creatinine using the MDRD equation. It is NOT the patient's actual GFR. The eGFR provides a more clinically useful measure of kidney disease than serum creatinine alone.This calculation takes sex and race into account, if the information is provided. If the race is not provided, and the patient is -[place], multiply by 1.212. If sex is not provided, and the patient is female, multiply by 0.742. Results for patients <18 years of age have not been validated by the MDRD study and should be interpreted with caution. eGFR Result Interpretation:eGFR > or = 60 is in the Normal RangeeGFR < 60 may mean kidney diseaseeGFR < 15 may mean kidney failure Ranges recommended by the National Kidney Foundation, http://nkdep.nih.gov Hemolysis (test code = Hemolysis) 0 mg/dL 8-11 Icterus (test code = Icterus) 0 mg/dL 8-11 Lipemia (test code = Lipemia) 0 mg/dL 8-11 Complete Blood Count with [id number] 14:50:11* Test Item Value Reference Range Interpretation Comme nts WBC (test code = WBC) 6.0 x10 4.4-10.5 RBC (test code = RBC) 4.38 x10 3.75-5.20 Hgb (test code = Hgb) 14.6 g/dL 12.2-14.8 Hct (test code = Hct) 41.9 % 36.5-44.4 MCV (test code = MCV) 95.70 fL 80.00-100.00 MCHC (test code = MCHC) 34.80 g/dL 32.00-37.50 MCH (test code = MCH) 33.3 pg 27.0-32.5 H RDW CV (test code = RDW CV) 12.4 % 11.5-14.5 Platelets (test code = Platelets) 168.0 x10 140.0-440.0 MPV (test code = MPV) 9.8 fL N Slide Review (test code = Slide Review) Auto Auto Result crea denisa by GL_SJM_[id number]_AUTO nRBC (test code = nRBC) 0 N NRBC Abs (test code = NRBC Abs) 0.00 x10 N IPF (test code = IPF) 0 % N Automated [id number] 14:50:11* Test Item Value Reference Range Interpretation Comme nts Neutro Auto (test code = Hector tro Auto) 65.2 % 36.0-70.0 Lymph Auto (test code = Lymph Auto) 26.4 % 12.0-44.0 [place] Auto (test code = [place] Auto) 6.3 % 0.0-11.0 Eos, Auto (test code = Eos, Auto) 1.5 % 0.0-7.0 Basophil Auto (test code = B asophil Auto) 0.3 % 0.0-2.0 Neutro Absolute (test code = Neutro Absolute) 3.9 x10 1.6-7.4 Lymph Absolute (test code = Lymph Absolute) 1.58 x10 .50-4.60 [place] Absolute (test code = M matthew Absolute) .38 x10 .00-1.20 Eos Absolute (test code = Eo s Absolute) 0.09 x10 0.00-0.74 Baso Absolute (test code = B aso Absolute) 0.02 x10 0.00-0.21 IG [id number] 14:50:11* Test Item Value Reference Range Interpretation Comme nts IG (test code = IG) 0.3 % 0.0-5.0 IG Abs (test code = IG Abs) 0 x10 N XR KNEE <3 VW [id number] 18:51:47[facility] Date/Time Note Provider Source 2023-02-18 09:24:45 4/lcl7BlJwuWfyEo8lG6 c9ZfdPUn5FK2SE bkrmM4KGyJp1CLitrzlOyTdVdkJaxQ1651 -08-24T09:24:45 Chief Complaint Patient presents with Follow-up Follow up on Sertraline Shoulder Pain Right shoulder pain for 3 weeks ago. She injured it walking down stairs with a suitcase and bumped it [place] [id number] LwtyLJ8178-28-70M66:25:43Nurse NoteTXT1.2.840.361987.1.13.131.2.7 .2.182759|[id number] for patient xyza36820-2Hctzf NoteLNKAISER FOUNDATION HOSPITALEPMercy [facility]27[address] [facility] [id number] [id number]:25:431.2.840.1143 50.1.72.3.15|1.2.840.941416.1.13.1 [id number] [facility]"
[2023-08-14 16:58] LABS: Absolute Lymphocytes (CBC) 1.3 K/uL (0.7-4.9); Hematocrit 46.7 % (36.0-45.0); Lymphocytes % 30.9 % (15.3-44.8); Platelets 216 thou/uL (152-406); RBC Red Blood Cell Count 4.77 M/uL (3.86-4.86)
[2023-08-14 17:19] LABS: ALT/SGPT 100 U/L (13-56); AST/SGOT 109 U/L (15-37); Albumin 4.1 g/dL (3.4-5.0); Alkaline Phosphatase 78 U/L (45-117); BUN Blood Urea Nitrogen 8 mg/dL (7-18); Bicarbonate 23 mEq/L (21-32); Bilirubin Direct 0.3 mg/dL (0-0.2); Bilirubin Indirect, Calculated 0.4 mg/dL (0.2-0.8); Bilirubin Total 0.7 mg/dL (0.2-1.0); Glomerular Filtration Rate 82 ml/min (=/>90); Glucose Level 121 mg/dL (74-106); Potassium 3.7 mEq/L (3.5-5.1); Protein, Total 7.8 g/dL (6.4-8.2); Sodium Level 140 mEq/L (136-145); Troponin High Sensitivity 22.9 pg/mL (<58.9)
--- NOTE | 2023-08-14 17:59 | EDPHYS ---
Physician Documentation [facility] Name: Keiry Romo Age: 58 yrs Sex: Female : 1965 Arrival Date: 08/14/2023 Time: 15:07 Bed 19 Private MD: ED Physician Caden Dumont HPI: 08/14 17:05 This 58 yrs old Female presents to ER via Ambulatory with complaints of agatha Detox/withdrawls. 17:05 The patient presents to the emergency department after a known overdose, a result of [facility] recreational substance abuse. Context: Method: the patient has a confirmed or suspected ingestion, of alcohol, Time: just prior to arrival, this morning. Associated signs and symptoms: Pertinent positives: dizziness. Severity of symptoms: At their worst the symptoms were moderate in the emergency department the symptoms are unchanged. Possible causes: alcohol, has had a recent alcohol binge. Historical: - Allergies: 16:13 No Known Allergies; nj1 - PMHx: 16:13 Insomnia; nj1 - Immunization history:: Client reports having NOT received the Covid vaccine. - Social history:: Smoking status: Reported history of juuling and/or vaping. Patient uses alcohol, on a daily basis. ROS: 17:08 Constitutional: Negative for fever, chills, and weight loss, Eyes: Negative for injury, agatha pain, redness, and discharge, ENT: Negative for injury, pain, and discharge, Neck: Negative for injury, pain, and swelling, Cardiovascular: Negative for chest pain, palpitations, and edema, Respiratory: Negative for shortness of breath, cough, wheezing, and pleuritic chest pain, Back: Negative for injury and pain, : Negative for injury, bleeding, discharge, and swelling, MS/Extremity: Negative for injury and deformity, Skin: Negative for injury, rash, and discoloration, Neuro: Negative for headache, weakness, numbness, tingling, and seizure, Psych: Negative for depression, anxiety, suicide ideation, homicidal ideation, and hallucinations, Allergy/Immunology: Negative for hives, rash, and allergies, Endocrine: Negative for neck swelling, polydipsia, polyuria, polyphagia, and marked weight changes, Hematologic/Lymphatic: Negative for swollen nodes, abnormal bleeding, and unusual bruising, 17:08 Abdomen/GI: Positive for nausea and vomiting, 17:08 Neuro: Positive for dizziness, weakness, SHAKING, Exam: 17:08 Constitutional: This is a well developed, well nourished patient who is awake, alert, agatha and in no acute distress. Head/Face: Normocephalic, atraumatic. Eyes: Pupils equal round and reactive to light, extra-ocular motions intact. Lids and lashes normal. Conjunctiva and sclera are non-icteric and not injected. Cornea within normal limits. Periorbital areas with no swelling, redness, or edema. ENT: Nares patent. No nasal discharge, no septal abnormalities noted. Tympanic membranes are normal and external auditory canals are clear. Oropharynx with no redness, swelling, or masses, exudates, or evidence of obstruction, uvula midline. Mucous membranes moist. Neck: Trachea midline, no thyromegaly or masses palpated, and no cervical lymphadenopathy. Supple, full range of motion without nuchal rigidity, or vertebral point tenderness. No Meningismus. Chest/axilla: Normal chest wall appearance and motion. Nontender with no deformity. No lesions are appreciated. Respiratory: Lungs have equal breath sounds bilaterally, clear to auscultation and percussion. No rales, rhonchi or wheezes noted. No increased work of breathing, no retractions or nasal flaring. Abdomen/GI: Soft, non-tender, with normal bowel sounds. No distension or tympany. No guarding or rebound. No evidence of tenderness throughout. Back: No spinal tenderness. No costovertebral tenderness. Full range of motion. Female : Normal external genitalia. Skin: Warm, dry with normal turgor. Normal color with no rashes, no lesions, and no evidence of cellulitis. MS/ Extremity: Pulses equal, no cyanosis. Neurovascular intact. Full, normal range of motion. Psych: Awake, alert, with orientation to person, place and time. Behavior, mood, and affect are within normal limits. 17:08 Cardiovascular: Rate: actual rate is 110 bpm, Rhythm: regular, Pulses: Pulses are 4+ in bilateral radial, brachial, femoral, popliteal, posterior tibial and and dorsalis pedis arteries.. Heart sounds: normal, Edema: is not appreciated, JVD: is not appreciated, 17:56 ECG was reviewed by the Attending Physician. [facility] Vital Signs: 16:12 BP 163 / 101; Pulse 110; Resp 18; Temp 98.3; Pulse Ox 97% ; Weight 63.5 kg; Height 5 nj1 ft. 6 in. ; 18:19 BP 151 / 106; Pulse 102; Resp 16; Pulse Ox 100% ; bp 20:28 BP 153 / 96; Pulse 100; Resp 16; Pulse Ox 99% ; bp 16:12 Body Mass Index 22.60 (63.50 kg, 167.64 cm) nj1 MDM: 15:57 Patient medically screened. agatha 17:12 Differential diagnosis: Ingestion/exposure to ALCOHOL polypharmacy, over medication, agatha hypoglycemia. Differential Diagnosis: electrolyte abnormality, alcohol intoxication, hypoglycemia, overdose, UTI, volume depletion. Data reviewed: vital signs, nurses notes, lab test result(s), EKG. Consideration of Admission/Observation Escalation of care including admission/observation considered. I considered the following discharge prescriptions or medication management in the emergency department Medications were administered in the Emergency Department. See MAR. Independent interpretation of the following test(s) in the Emergency Department EKG: See my EKG interpretation above. Test considered but Not performed: CT: NO CT HEAD. Historians other than the Patient: Friend: NEIGHBOR, WELL INFORMED. Care significantly affected by the following chronic conditions: INSOMNIA, ETOH ABUSE. Counseling: I had a detailed discussion with the patient and/or guardian regarding the historical points, exam findings, and any diagnostic results supporting the discharge/admit diagnosis, the presence of at least one elevated blood pressure reading (>120/80) during this emergency department visit, lab results, the need for outpatient follow up, for definitive care, a family practitioner, a psychiatrist. 08/14 15:59 Order name: Acetaminophen; Complete Time: 17:57 [facility] 08/14 15:59 Order name: Basic Metabolic Panel; Complete Time: 17:57 [facility] 08/14 15:59 Order name: CBC with Diff; Complete Time: 17:57 [facility] 08/14 15:59 Order name: ETOH Level; Complete Time: 17:57 [facility] 08/14 15:59 Order name: Hepatic Function; Complete Time: 17:57 agatha 08/14 15:59 Order name: PT-INR; Complete Time: 17:57 agatha 08/14 15:59 Order name: Test, Urine [facility] 08/14 15:59 Order name: Ptt, Activated; Complete Time: 17:57 [facility] 08/14 15:59 Order name: Salicylate; Complete Time: 17:57 [facility] 08/14 15:59 Order name: Urinalysis w/ reflexes 08/14 15:59 Order name: Urine Drug Screen 08/14 15:59 Order name: Troponin High Sensitivity; Complete Time: 17:57 [facility] 08/14 15:59 Order name: EKG; Complete Time: 15:59 [facility] 08/14 15:59 Order name: EKG - Nurse/Tech; Complete Time: 16:38 [facility] 08/14 15:59 Order name: IV Saline Lock; Complete Time: 16:31 [facility] 08/14 15:59 Order name: Labs collected and sent; Complete Time: 16:31 [facility] 08/14 15:59 Order name: Suicide Screening ([place]); Complete Time: 16:38 [facility] 08/14 17:59 Order name: Misc. Order: JUICE; Complete Time: 18:05 [facility] EC:56 Rate is 95 beats/min. Rhythm is regular. QRS [place] is Normal. [place] interval is normal. QRS agatha interval is normal. QT interval is normal. No Q waves. T waves are Normal. No ST changes noted. Clinical impression: NSR w/ Non-specific ST/T Changes and No evidence of ischemia. Administered Medications: 17:00 Drug: NS 0.9% IV 1000 ml IV at 1 bolus Per protocol; 1000 mL bolus Route: IV; Rate: 1 bp bolus; Site: right antecubital; 20:31 Follow up: IV Status: Completed infusion; IV Intake: 1000ml bp 17:03 CANCELLED (Duplicate Order): ns 0.9% 1000 ml IV at 1 bolus Per protocol; 1000 mL bolus [facility] 17:08 CANCELLED (Duplicate Order): Banana Bag - (ns 0.9% 1000 ml, folic acid ivpb 1 mg, [facility] [id number] mg, multivitamin1 amp) IV at calculated rate once 18:04 Drug: Banana Bag - (Multivitamin IV 1 amp, NS 0.9% IV 1000 ml, Thiamine IV 100 mg, bp foLIC Acid IVPB 1 mg) IV at 500 ml/hr once Route: IV; Rate: 500 ml/hr; Site: right forearm; 20:30 Follow up: IV Status: Completed infusion; IV Intake: 1000ml bp 18:05 Drug: Ativan IVP 2 mg IVP once Route: IVP; Site: right forearm; bp 20:30 Follow up: Response: No adverse reaction bp 18:05 Drug: Librium - chlordiazePOXIDE PO 50 mg PO once Route: PO; bp 20:30 Follow up: Response: No adverse reaction bp 18:05 Drug: Ondansetron IVP 4 mg IVP once; over 2 minutes Route: IVP; Site: right forearm; bp 20:30 Follow up: Response: No adverse reaction bp 18:05 Drug: Thiamine IV 100 mg IV at per protocol once Route: IV; Rate: per protocol; Site: bp right forearm; 20:30 Follow up: IV Status: Completed infusion bp Disposition Summary: 08/14/23 17:59 Discharge Ordered Notes: Location: Home agatha Problem: new agatha Symptoms: have improved agatha Condition: Stable agatha Diagnosis - Alcohol abuse agatha - Alcohol dependence with intoxication - 314 MG/DL agatha - Alcohol dependence with withdrawal, uncomplicated agatha - Alcohol abuse with intoxication agatha Followup: agatha - With: Private Physician - When: 2 - 3 days - Reason: Recheck today's complaints, Continuance of care, Re-evaluation by your physician Followup: agatha - With: Mynor Bal DO - When: 2 - 3 days - Reason: Recheck today's complaints, Continuance of care, Re-evaluation by your physician Discharge Instructions: - Discharge Summary Sheet agatha - Finding Treatment for Addiction agatha - Alcohol Intoxication agatha - Alcohol Withdrawal Syndrome agatha - Alcohol Use Disorder agatha - Alcohol Intoxication, [id number] agatha - Alcohol Withdrawal Syndrome, Teew-fh-Nmuj agatha - Alcohol Abuse and Dependence Information, Adult [facility] Forms: - Medication Reconciliation Form [facility] - Thank You Letter [facility] - Antibiotic Education agatha - Prescription Opioid Use [facility] - Patient Portal Instructions [facility] - Leadership Thank You Letter [facility] Prescriptions: - - take 1 tablet ORAL route daily; 30 tablet; Refills: 0, Product Selection [facility] Permitted - ondansetron 4 mg Oral Tablet,disintegrating - take 1 tablet ORAL route every 8-12 hours for 5 days as needed for nausea and agatha vomiting; 20 tablet; Refills: 0, Product Selection Permitted Signatures: Dispatcher [employer] Caden Garcia MD MD cha Peltier, Brian, RN RN bp Maribell Gandara RN RN nj1 Corrections: (The following items were deleted from the chart) 16:14 16:13 PMHx: None; nj1 nj1 17:03 17:03 NS 0.9% IV 1000 ml IV at 1 bolus Per protocol; 1000 mL bolus ordered. agatha snider 17: 17:04 Banana Bag - (Multivitamin IV 1 amp, NS 0.9% IV 1000 ml, Thiamine IV 100 mg, agatha foLIC Acid IVPB 1 mg) IV at calculated rate once ordered. agatha
--- NOTE | 2023-08-14 17:59 | ER ---
Nurse's Notes [facility] Name: Keiry Romo Age: 58 yrs Sex: Female : 1965 Arrival Date: 08/14/2023 Time: 15:07 Bed 19 Private MD: Diagnosis: Alcohol abuse;Alcohol dependence with intoxication-314 MG/DL;Alcohol dependence with withdrawal, uncomplicated;Alcohol abuse with intoxication Presentation: 08/14 16:12 Chief complaint: Patient states: "Detox" Daily drinker, has not drink any in 5 days. [facility] Coronavirus screen: Vaccine status: Patient reports being unvaccinated. Ebola Screen: Patient denies travel to an Ebola-affected area in the 21 days before illness onset. Initial Sepsis Screen: Does the patient meet any 2 criteria? HR > 90 bpm. No. Patient's initial sepsis screen is negative. Does the patient have a suspected source of infection? No. Patient's initial sepsis screen is negative. Risk Assessment: Do you want to hurt yourself or someone else? Patient reports no desire to harm self or others. Onset of symptoms was July 2023. 16:12 Method Of Arrival: Ambulatory [facility] 16:12 Acuity: SUHAIL 3 nj Triage Assessment: 16:30 General: Appears in no apparent distress. Behavior is cooperative, appropriate for age, bp anxious. Pain: Denies pain. Cardiovascular: Rhythm is sinus tachycardia. Historical: - Allergies: 16:13 No Known Allergies; nj1 - PMHx: 16:13 Insomnia; nj1 - Immunization history:: Client reports having NOT received the Covid vaccine. - Social history:: Smoking status: Reported history of juuling and/or vaping. Patient uses alcohol, on a daily basis. Screenin:30 [facility] ED Fall Risk Assessment (Adult) History of falling in the last 3 months, bp including since admission No falls in past 3 months (0 pts). Abuse screen: Denies threats or abuse. Denies injuries from another. Nutritional screening: No deficits noted. Tuberculosis screening: No symptoms or risk factors identified. Assessment: 16:30 General: SEE TRIAGE NOTE. bp 18:19 Reassessment: DC ON HOLD FOR IVF AND FINAL LAB RESULTS. bp 20:28 Reassessment: DC HOME AMBULATORY. bp Vital Signs: 16:12 BP 163 / 101; Pulse 110; Resp 18; Temp 98.3; Pulse Ox 97% ; Weight 63.5 kg; Height 5 nj1 ft. 6 in. ; 18:19 BP 151 / 106; Pulse 102; Resp 16; Pulse Ox 100% ; bp 20:28 BP 153 / 96; Pulse 100; Resp 16; Pulse Ox 99% ; bp 16:12 Body Mass Index 22.60 (63.50 kg, 167.64 cm) nj1 ED Course: 15:10 Patient arrived in ED. ts1 15:55 Patient's name was called from ER lobby. No response. nj1 15:57 Caden Dumont MD is Attending Physician. agatha 16:13 Triage completed. nj1 16:14 Arm band placed on. nj1 16:15 Faraz Paige, RUBINA is Primary Nurse. bp 16:30 Patient has correct armband on for positive identification. bp 16:31 Inserted saline lock: 20 gauge in right forearm, using aseptic technique. Blood mc5 collected. 17:58 Mynor Bal DO is Referral Physician. agatha 20:28 No provider procedures requiring assistance completed. IV discontinued, intact. bp Administered Medications: 17:00 Drug: NS 0.9% IV 1000 ml IV at 1 bolus Per protocol; 1000 mL bolus Route: IV; Rate: 1 bp bolus; Site: right antecubital; 20:31 Follow up: IV Status: Completed infusion; IV Intake: 1000ml bp 17:03 CANCELLED (Duplicate Order): ns 0.9% 1000 ml IV at 1 bolus Per protocol; 1000 mL bolus agatha 17:08 CANCELLED (Duplicate Order): Banana Bag - (ns 0.9% 1000 ml, folic acid ivpb 1 mg, agatha [id number] mg, multivitamin1 amp) IV at calculated rate once 18:04 Drug: Banana Bag - (Multivitamin IV 1 amp, NS 0.9% IV 1000 ml, Thiamine IV 100 mg, bp foLIC Acid IVPB 1 mg) IV at 500 ml/hr once Route: IV; Rate: 500 ml/hr; Site: right forearm; 20:30 Follow up: IV Status: Completed infusion; IV Intake: 1000ml bp 18:05 Drug: Ativan IVP 2 mg IVP once Route: IVP; Site: right forearm; bp 20:30 Follow up: Response: No adverse reaction bp 18:05 Drug: Librium - chlordiazePOXIDE PO 50 mg PO once Route: PO; bp 20:30 Follow up: Response: No adverse reaction bp 18:05 Drug: Ondansetron IVP 4 mg IVP once; over 2 minutes Route: IVP; Site: right forearm; bp 20:30 Follow up: Response: No adverse reaction bp 18:05 Drug: Thiamine IV 100 mg IV at per protocol once Route: IV; Rate: per protocol; Site: bp right forearm; 20:30 Follow up: IV Status: Completed infusion bp Medication: 16:30 VIS not applicable for this client. bp Intake: 20:30 IV: 1000ml; Total: 1000ml. bp 20:31 IV: 1000ml; Total: 2000ml. bp Outcome: 17:59 Discharge ordered by . agatha 20:28 Discharged to home ambulatory, bp 20:28 Condition: stable 20:28 Discharge instructions given to patient, Instructed on discharge instructions, follow up and referral plans. medication usage, Demonstrated understanding of instructions, follow-up care, medications, Prescriptions given X 3, 20:31 Patient left the ED. bp Signatures: Caden Dumont MD MD cha Peltier, Brian, RUBINA RN bp Maribell Gandara, RUBINA RN nj1 Beena Aggarwal PAS PAS ts1 Inna Varner mc5 Corrections: (The following items were deleted from the chart) 16:14 16:13 PMHx: None; nj1 nj 16:15 16:12 Pulse 110bpm; Resp 18bpm; Pulse Ox 97%; Temp 98.3F; 63.5 kg; Height 5 ft. 6 in.; [facility] BMI: 22.6; [facility]
[2023-08-14 18:21] LABS: Specific Gravity 1.019 (1.005-1.030); Urine Bacteria <20 /HPF (<20); Urine Bilirubin NEGATIVE (Negative); Urine Blood Negative (Negative); Urine Clarity Clear (Clear); Urine Color Light-Yellow (Yellow); Urine Glucose 4+ (Over) (Negative); Urine Mucus Slight /HPF (None Seen); Urine Protein TRACE (Negative); Urine RBC <5 /HPF (None Seen); Urine Urobilinogen Normal (Normal)
[2023-08-14 18:28] LABS: Barbiturates NEGATIVE (NEGATIVE); Benzodiazepines NEGATIVE (NEGATIVE); Cocaine NEGATIVE (NEGATIVE); METHAMPHETAM NEGATIVE (NEGATIVE); Methadone NEGATIVE (NEGATIVE); Opiates NEGATIVE (NEGATIVE); Phencyclidine NEGATIVE (NEGATIVE); THC Cannibis NEGATIVE (NEGATIVE)
[2023-08-14 20:53] VITALS: BP 153/96; TEMP 98.3; O2SAT 99
--- NOTE | 2023-08-16 11:00 | EKG ---
Test Date: 2023-08-14 Test Time: 16:36:50 Pre Sales Systems Engineer: CHIP MEASUREMENT RESULTS: Intervals: Rate: 95 NM: 138 QRSD: 70 QT: 354 QTc: 444 [place]: P: 62 NM: 138 QRS: 43 T: 23 INTERPRETIVE STATEMENTS: Normal sinus rhythm Possible Left atrial enlargement Low voltage QRS Cannot rule out Anterior infarct, age undetermined Abnormal ECG No previous ECG available for comparison Electronically Signed On 08-16-23 10:56:39 [employer]HER [employer] by Deni Webb
== END ==
LOC: ER 15:07
DX: F10.229 Alcohol dependence with intoxication, unspecified (principal); F10.239 Alcohol dependence with withdrawal, unspecified; Z28.310 Unvaccinated for COVID-19
CPT/HCPCS: 96365; 96361; 93005; 85025; 81001; 80048; 36415; 81025; 85610; 80076; 85730; 84484; 80307; 96375; 99284; 80143; 80179; 82077; J3411; J2405; J7030 ×2